=== PATIENT | female | born 1975 | race American Indian/Alaskan Native ===

== ENCOUNTER 2018-01-11 08:28 | Day surgery (SDC) | payer OTHER ==
--- NOTE | 2018-01-06 11:09 | Anesthesia Consultation ---
Anesthesia Consult and Med Hx Date of service: 01/06/18 - Airway Anesthetic Teeth Evaluation: Good, Crowns ROM Head & Neck: Adequate Mental/Hyoid Distance: Adequate Mallampati Class: Class II Intubation Access Assessment: Probably Good - Pulmonary Exam CTA: Yes - Cardiac Exam Cardiac Exam: RRR - Pre-Operative Health Status ASA Pre-Surgery Classification: ASA2 Proposed Anesthetic Plan: General - Cardiovascular System Hx Hypertension: No - Central Nervous System Hx Psychiatric Problems: No - Hematic Hx Anemia: Yes (uterine fibroid) - Other Systems Hx Alcohol Use: Yes (occas) Hx Cancer: No
[2018-01-06 11:10] LABS: Basophils # (Auto) 0.1 K/mm3 (0.0-0.1); Basophils % (Auto) 1.3 % (0.0-1.8); Eosinophils # (Auto) 0.2 K/mm3 (0.0-0.4); Eosinophils % (Auto) 3.9 % (0.0-4.3); Hematocrit 32.1 % (30.3-42.9); Hemoglobin 10.1 gm/dl (10.1-14.3); Lymphocytes # (Auto) 1.3 K/mm3 (1.2-5.4); Lymphocytes % (Auto) 29.4 % (13.4-35.0); Mean Corpuscular HGB Conc 32 % (30-34); Mean Corpuscular Volume 71 fl (79-97); Monocytes # (Auto) 0.4 K/mm3 (0.0-0.8); Monocytes % (Auto) 8.6 % (0.0-7.3); Platelet Count 456 K/mm3 (140-440); Red Cell Distribution Width 17.9 % (13.2-15.2)
[2018-01-06 11:11] LABS: Mean Corpuscular Hemoglobin 23 pg (28-32)
[2018-01-06 11:31] LABS: BUN/Creatinine Ratio 15; Blood Urea Nitrogen 9 mg/dL (7-17); Calcium 8.9 mg/dL (8.4-10.2); Hemolysis Index 0
--- NOTE | 2018-01-08 15:30 | History and Physical Report ---
History of Present Illness History of present illness: T Patient has been reassessed/reevaluated. H&P has been reviewed. No interval changes. his is a 42 years old female who presents with submucosal uterine fibroid discovered during hysteroscopy for essure placement. She complains of menorrhagia. Patient desires definitive treatment and Essure placement Patient Profile: 42 Years Old Female LMP: 12/19/2017 Height: 61.5 inches (156.21 cm) Weight: 191 pounds BMI: 35.50 Menstrual History: LMP (date): 12/19/2017 Current Method of Contraception: Condoms Past History : 4 Term Births: 2 Premature Births: 0 Living Children: 2 Para: 2 Mult. Births: 0 Prev : 0 Prev. attempt? 0 Aborta: 2 Elect. Ab: 1 Spont. 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 of genital herpes: no Hx of STD: None Other: +HPV Current Allergies (reviewed today): * PENICILLIN (Critical) Past Medical History: Hypertension Past Surgical History: D&C Family History Summary: Other family member - Has Family History of Renal Disease - Entered On: 09/29/2017 Other family member - Has No Family History of Breast Cancer - Entered On: 2017 Other family member - Has No Family History of Colon Cancer - Entered On: 2017 Other family member - Has No Family History of Ovarvian Cancer - Entered On: 09/29 Social History: [employer] Patient is Smoking History: Patient has never smoked. Risk Factors: Smoked Tobacco Use: Never smoker Smokeless Tobacco Use: Never Drug use: no HIV high-risk behavior: no Alcohol use: yes Exercise: no Seatbelt use: 100 % Review of Systems General Denies fever, chills, sweats, anorexia, fatigue, weakness, malaise, weight loss and sleep disorder. Complains of menorrhagia. Denies vaginal discharge, incontinence, dysuria, hematuria, urinary frequency, amenorrhea, abnormal vaginal bleeding, pelvic pain, genital sores, decreased libido, painful periods, painful sex, urinary urgency, hot flashes, vaginal dryness, vaginal itching and vaginal odor. CV Denies chest pains, palpitations, syncope, dyspnea on exertion, orthopnea, PND and peripheral edema. Resp Denies cough, dyspnea at rest, excessive sputum, hemoptysis, wheezing and pleurisy. GI Denies nausea, vomiting, diarrhea, constipation, change in bowel habits, abdominal pain, melena, hematochezia, jaundice, gas/bloating, indigestion/ heartburn, dysphagia and odynophagia. Breast Denies left breast lump, right breast lump, nipple discharge, bloody discharge from nipple, breast pain, abnormal mammogram and breast enlargement. Psych Denies depression, anxiety, irritability and mood swings. Past History Past Medical History: other (See HPI) Past Surgical History: Other (See HPI) Social history: other (See HPI) Family history: other (See HPI) Medications and Allergies Allergies Allergy/AdvReac Type Severity Reaction Status Date / Time Penicillins Allergy Vomiting Verified 01/05/18 16:08 Home Medications Medication Instructions Recorded Confirmed Last Taken Type No Known Home Medications [No 01/05/18 01/05/18 Unknown History Reported Home Medications] Review of Systems Constitutional: other (See HPI) Exam - Physical Exam Narrative exam: HEENT: normocephalic, no lesions or deformities Neck/Thyroid: supple, thyroid normal Skin no significant abnormal lesions or rashes Chest: respiratory effort normal, clear to auscultation Breasts: skin/areolae normal, no masses, no nipple discharge, no erythema/warmth /tenderness, and axillae normal. CV: regular, normal S1-S2, no murmur, no rub, no gallop Abdomen: normal bowel sounds, soft, nontender, no HSM Musculoskeletal: grossly normal ROM in joints, no joint tenderness or muscle weakness Neuro: no gross anomalities Extremities: no clubbing, cyanosis, or edema HEALTHCARE INTERPRETER Exams Vulva/Vagina: normal appearance, white discharge, lesions. No evidence of cystocele or rectocele. Cervix: No lesions; no cervical motion tenderness Uterus: normal size and position, midline, mobile Adnexae: no masses or tenderness Rectovaginal: exam defered - Constitutional Vitals: Temp Pulse Resp BP Pulse Ox 97.8 F 80 16 140/90 01/06/18 10:45 01/06/18 10:45 01/06/18 10:45 01/06/18 10:45 Results - Labs CBC & Chem 7: 01/06/18 10:50 01/06/18 10:50 Assessment and Plan - Patient Problems (1) Submucous leiomyoma of uterus Current Visit: No Status: Acute Plan to address problem: Diagnosis explained to patient . Questions answered. Patient desires definitive treatment Patient desires least invasive procedure Patient desires myosure myomectomy Discussed risk of surgery including infection, bleeding and risk of perforating her uterus. Questions answered. Patient understands and desires to proceed (2) Encounter for sterilization Current Visit: No Status: Acute Plan to address problem: Patient desires sterilization.Discuss the permanency of sterilization. High risk of regret and 0.5 to 1% risk of failure. Discussed the different risk of abdominal versus vaginal approaches. Information given Patient desires Essure. Discussed risk of surgery including infection, bleeding and risk of perforating her uterus.Discuss permanent nature of the procedure and the 1% failure rate. Also stressed the need for alternative contraceptive for 3 months. Patient understands that a HSG is required to insure tubal occlusion. Questions answered. Patient understands and desires to proceed Patient states if unable to do Essure procedure she desires laparoscopy. Patient understands risks of bleeding, infection possible damage to bowel, bladder or ureter. Questions answered and desires to proceed.
[~2018-01-11 08:28] MED LIST: NACL 0.9% 1000 ML 1,000 ML IV SCH
[2018-01-11] MEDS ORDERED: LACTATED RINGERS 1,000 ML IV SCH (09:00)
[2018-01-11] MEDS ORDERED: VERSED IV NR (09:00)
[2018-01-11] MEDS ORDERED: TORADOL IV PRN (09:00)
[2018-01-11] MEDS ORDERED: ZOFRAN IV PRN (09:00)
[2018-01-11] MEDS ORDERED: DEMEROL IV PRN (09:00)
[2018-01-11] MEDS ORDERED: DILAUDID IV PRN (09:00)
--- NOTE | 2018-01-11 09:01 | Anesthesia Day of Surgery ---
Anesthesia Day of Surgery - Day of Surgery Patient Examined: Yes Patient H&P Reviewed: Yes Patient is NPO: Yes
--- NOTE | 2018-01-11 09:02 | Anesthesia Consultation ---
Anesthesia Consult and Med Hx Date of service: 01/11/18 - Airway Anesthetic Teeth Evaluation: Good ROM Head & Neck: Adequate Mental/Hyoid Distance: Adequate Mallampati Class: Class II Intubation Access Assessment: Probably Good - Pulmonary Exam CTA: Yes - Cardiac Exam Cardiac Exam: RRR - Pre-Operative Health Status ASA Pre-Surgery Classification: ASA2 Proposed Anesthetic Plan: General (GA with LMA) - Cardiovascular System Hx Hypertension: No - Central Nervous System Hx Psychiatric Problems: No - Hematic Hx Anemia: Yes (uterine fibroid) - Other Systems Hx Alcohol Use: Yes (occas) Hx Cancer: No
[2018-01-11] MEDS ORDERED: NACL BACTERIOSTATIC INFILTRATI ONE (09:03)
[2018-01-11] MEDS ORDERED: DIPRIVAN 10 MG/ML IV ONE (11:32)
[2018-01-11] MEDS ORDERED: SUBLIMAZE ONE (11:32)
[2018-01-11] MEDS ORDERED: NACL 0.9% IR ONE (12:00)
[2018-01-11] MEDS ORDERED: DECADRON ONE (12:12)
[2018-01-11] MEDS ORDERED: XYLOCAINE MPF 2% ONE (12:12)
[2018-01-11] MEDS ORDERED: ZOFRAN ONE (12:12)
[2018-01-11] MEDS ORDERED: ePHEDrine 50 MG/5 ML-0.9% NACL IV ONE (12:52)
[2018-01-11] MEDS ORDERED: LASIX ONE ×2 (12:55→13:07)
[2018-01-11 14:28] LABS: BUN/Creatinine Ratio 13; Blood Urea Nitrogen 9 mg/dL (7-17); Calcium 8.2 mg/dL (8.4-10.2); Hemolysis Index 51
--- NOTE | 2018-01-11 14:34 | XRay Report ---
Single view chest: History: Hypoxia during surgery. Findings: Normal cardiomediastinal silhouette. Trachea is midline. No consolidation, pneumothorax or pleural effusion. Incidentally noted free air under the right diaphragm probably related to previous surgery. Impression: No acute cardiopulmonary findings.
--- NOTE | 2018-01-11 14:56 | Short Stay Summary ---
Short Stay Documentation Date of service: 01/11/18 - History H&P: dictated Past Medical History: other (See HPI) Past Surgical History: Other (See HPI) Social history: other (See HPI) - Allergies and Medications Current Medications: Allergies Penicillins Allergy (Verified 01/05/18 16:08) Vomiting Home Medications Medication Instructions Recorded Confirmed Last Taken Type Acetaminophen/Codeine [Tylenol #3] 1 tab PO Q4HR PRN #20 tablet 01/11/18 Unknown Rx Ibuprofen [Motrin 800 MG tab] 800 mg PO Q6H PRN #30 tablet 01/11/18 Unknown Rx Active Medications Hydromorphone HCl (Dilaudid) 0.5 mg IV Q10MIN PRN PRN Reason: Pain , Severe (7-10) Sodium Chloride (Nacl 0.9% 1000 Ml) 1,000 mls @ 125 mls/hr IV DIRECT SY Last Admin: 01/11/18 09:20 Dose: 125 mls/hr Lactated Ringer's (Lactated Ringers) 1,000 mls @ 100 mls/hr IV DIRECT SY Ketorolac Tromethamine (Toradol) 30 mg IV ONCE PRN PRN Reason: Pain, Moderate (4-6) Meperidine HCl (Demerol) 25 mg IV ONCE PRN PRN Reason: Shivering Midazolam HCl (Versed) 2 mg IV PREOP NR Stop: 01/11/18 23:59 Last Admin: 01/11/18 09:40 Dose: 2 mg Ondansetron HCl (Zofran) 4 mg IV ONCE PRN PRN Reason: Nausea And Vomiting - Brief post op/procedure progress note Date of procedure: 01/11/18 (see dictated operative note) Condition: stable - Hospital course Hospital course: Patient was admitted underwent the above him procedure complicated by probable venous air embolus. Patient hypertension IMPROVED quickly in the operating room. Approximately 80% of the submucosal myoma was removed before the surgery had to be stopped. Essure was not attempted nor was the patient and her condition to perform laparoscopy. Patient chest x-ray metabolic panel and EKG were normal in the recovery room. Discussed the benefits to the operating room with the patient and her . Patient will be discharged with follow-up in office in 1-2 weeks for postop check. - Disposition Condition at discharge: Good Disposition: DC-01 TO HOME OR SELFCARE - Discharge Diagnoses (1) Submucous leiomyoma of uterus Status: Acute (2) Encounter for sterilization Status: Acute Short Stay Discharge Plan Activity: advance as tolerated Diet: regular Follow up with: TIFFANIE TANG MD [Primary Care Provider] - 7 Days Prescriptions: Ibuprofen [Motrin 800 MG tab] 800 mg PO Q6H PRN #30 tablet PRN Reason: Pain Acetaminophen/Codeine [Tylenol #3] 1 tab PO Q4HR PRN #20 tablet PRN Reason: Pain
--- NOTE | 2018-01-11 15:00 | Operative Report ---
Operative Report Operative Report: Date of procedure: 01/11/2018 Pre-operative diagnosis: Submucosal myoma and desires permanent sterilization Post-operative diagnosis: Same Procedure name(s): Operative hysteroscopy with MyoSure myomectomy partially completed Surgeon: Garland Olmos MD Cut Off Saw Operator Metal: [] Anesthesia: Gen. EBL: Minimal Complications: Patient done with hypoxia tension during the procedure consistent with probable venous air embolus Findings: Approximately 11/2-2 cm submucosal myoma the right fallopian tube ostium was seen along with the left fallopian tube ostia Specimen(s): Uterine mass Procedure: Patient was brought into the operating room, where general anesthesia was induced without any difficulty. Patient was placed in dorsal lithotomy position. Prep and drape in the usual sterile manner. Timeout procedure was performed. The patient's bladder was emptied with a red rubber catheter. Speculum was placed in the vagina. Tenaculum was placed at 12:00 on the cervix. The cervical os was dilated to a 19 Lao diameter. The hysteroscope was placed and the findings noted above. The MyoSure device was primed. The device was placed through the cervical os. The mass was then removed using the MyoSure. The mass was completely removed with no evidence of puncture on the uterine wall. All instruments were then removed. The patient was awakened in the operating room and accompanied to recovery room in good condition.
[2018-01-11] MEDS ORDERED: TYLENOL #3 ONE (15:40)
[2018-01-11] MEDS ORDERED: TYLENOL #3 PO ONE (16:10)
[2018-01-11] MEDS ORDERED: TYLENOL #3 PO SCH (17:00)
[2018-01-11 20:50] VITALS: BP 123/83
== END 2018-01-11 17:56 | disposition home or self-care (01) ==
LOC: OR 08:28
PROVIDERS: ATTEND Obstetrics & Gynecology
DX: Z30.2 Encounter for sterilization (principal); D25.0 Submucous leiomyoma of uterus; Z88.0 Allergy status to penicillin
CPT/HCPCS: 36415; 58561; 58565; 71045; 80048; 84703; 85025; 88305; 93005; 93010; A4217; C1782; J1100; J1885; J1940; J2175; J2250; J2405; J2704; J3010; J7030

== ENCOUNTER 2018-04-01 08:35 | Day surgery (SDC) | payer OTHER ==
--- NOTE | 2018-04-01 05:57 | History and Physical Report ---
History of Present Illness Date of examination: 03/29/18 History of present illness: Patient has been reassessed/reevaluated. H&P has been reviewed. No interval changes. This is a 43 years old female who presents with submucosal uterine fibroid discovered during hysteroscopy for essure placement. She complains of menorrhagia. Patient desires definitive treatment and Essure placement Vital Signs: Patient Profile: 43Years Old Female LMP: 12/19/2017 Height: 61.5 inches (156.21 cm) Weight: 191 pounds BMI: 35.50 s Past History : 4 Term Births: 2 Premature Births: 0 Living Children: 2 Para: 2 Mult. Births: 0 Prev : 0 Prev. attempt? 0 Aborta: 2 Elect. Ab: 1 Spont. Ab: 1 Ectopics: 0 Abnormal PAP: negative Uterine Anomaly: negative Infection History HIV Risk Eval: no Personal hx. of genital herpes: no Hx of STD: None Other: +HPV Current Allergies (reviewed today): * PENICILLIN (Critical) Past Medical History: Hypertension Past Surgical History: Hysteroscopic myomectomy complicated by possible air embolus during surgery Family History Summary: Other family member - Has Family History of Renal Disease - Entered On: 09/29/2017 Other family member - Has No Family History of Breast Cancer - Entered On: 2017 Other family member - Has No Family History of Colon Cancer - Entered On: 2017 Other family member - Has No Family History of Ovarvian Cancer - Entered On: 09/29 Social History: [employer] Patient is Smoking History: Patient has never smoked. Risk Factors: Smoked Tobacco Use: Never smoker Smokeless Tobacco Use: Never Drug use: no HIV high-risk behavior: no Alcohol use: yes Exercise: no Seatbelt use: 100 % Review of Systems General Denies fever, chills, sweats, anorexia, fatigue, weakness, malaise, weight loss and sleep disorder. Complains of menorrhagia. Denies vaginal discharge, incontinence, dysuria, hematuria, urinary frequency, amenorrhea, abnormal vaginal bleeding, pelvic pain, genital sores, decreased libido, painful periods, painful sex, urinary urgency, hot flashes, vaginal dryness, vaginal itching and vaginal odor. CV Denies chest pains, palpitations, syncope, dyspnea on exertion, orthopnea, PND and peripheral edema. Resp Denies cough, dyspnea at rest, excessive sputum, hemoptysis, wheezing and pleurisy. GI Denies nausea, vomiting, diarrhea, constipation, change in bowel habits, abdominal pain, melena, hematochezia, jaundice, gas/bloating, indigestion/ heartburn, dysphagia and odynophagia. Breast Denies left breast lump, right breast lump, nipple discharge, bloody discharge from nipple, breast pain, abnormal mammogram and breast enlargement. Psych Denies depression, anxiety, irritability and mood swings. Past History Past Medical History: other (See HPI) Past Surgical History: Other (See HPI) Social history: other (See HPI) Family history: other (See HPI) Medications and Allergies Allergies Allergy/AdvReac Type Severity Reaction Status Date / Time Penicillins Allergy Vomiting Verified 01/05/18 16:08 Home Medications Medication Instructions Recorded Confirmed Last Taken Type Ergocalciferol [Vitamin D2] 50,000 units PO QWEEK 04/01/18 04/01/18 03/31/18 History Exam - Physical Exam Narrative exam: HEENT: normocephalic, no lesions or deformities Skin no significant abnormal lesions or rashes Chest: respiratory effort normal, clear to auscultation Breasts: skin/areolae normal, no masses, no nipple discharge, no erythema/warmth /tenderness, and axillae normal. CV: regular, normal S1-S2, no murmur, no rub, no gallop Abdomen: normal bowel sounds, soft, nontender, no HSM Musculoskeletal: grossly normal ROM in joints, no joint tenderness or muscle weakness Neuro: no gross anomalities Extremities: no clubbing, cyanosis, or edema FIELD OPERATIONS FARM MANAGER Exams Vulva/Vagina: normal appearance, white discharge, lesions. No evidence of cystocele or rectocele. Cervix: No lesions; no cervical motion tenderness Uterus: normal size and position, midline, mobile Adnexae: no masses or tenderness Rectovaginal: exam defered Results - Labs CBC & Chem 7: 04/01/18 09:40 04/01/18 09:40 Assessment and Plan - Patient Problems (1) Encounter for sterilization Current Visit: No Status: Acute Plan to address problem: Patient s/p failed Essure attempts desires laparaoscopic tubal ligation. Discuss the risks of the surgery including infection, bleeding possibly heavy enough to require a blood transfusion, possible damage to adjacent organs. Discuss permanent nature of the procedure and the 1% failure rate. Discuss of possibility of laparotomy needed (2) Submucous leiomyoma of uterus Current Visit: No Status: Acute Plan to address problem: S/p myosure interrupted by probable air embolus. Patient has been cleared by sales operations associate. Patient desires hysteroscopy to remove possible residual myoma and endometrial ablation. Discussed risk of surgery including infection, bleeding and risk of perforating her uterus. Questions answered. Patient understands and desires to proceed (3) Hypertension Current Visit: No Status: Acute Qualifiers: Hypertension type: essential hypertension Qualified Code(s): I10 - Essential (primary) hypertension Plan to address problem: Systems Engineering Manager clearance obtained (4) Menorrhagia Current Visit: Yes Status: Acute Qualifiers: Menorrahagia type: with regular cycle Qualified Code(s): N92.0 - Excessive and frequent menstruation with regular cycle Plan to address problem: Probably secondary to #2. Patient desires definitive treatment. In addition to myomectomy patient desire endometrial ablation with Novasure.
[~2018-04-01 08:35] MED LIST changes: +DIPRIVAN 10 MG/ML IV ONE; -NACL 0.9% 1000 ML 1,000 ML IV SCH
[2018-04-01 10:05] LABS: Basophils % (Auto) 0.9 % (0.0-1.8); Eosinophils # (Auto) 0.2 K/mm3 (0.0-0.4); Eosinophils % (Auto) 4.2 % (0.0-4.3); Hematocrit 25.6 % (30.3-42.9); Hemoglobin 7.9 gm/dl (10.1-14.3); Lymphocytes # (Auto) 1.5 K/mm3 (1.2-5.4); Lymphocytes % (Auto) 27.8 % (13.4-35.0); Mean Corpuscular HGB Conc 31 % (30-34); Mean Corpuscular Hemoglobin 20 pg (28-32); Mean Corpuscular Volume 66 fl (79-97); Monocytes # (Auto) 0.4 K/mm3 (0.0-0.8); Monocytes % (Auto) 6.6 % (0.0-7.3); Platelet Count 464 K/mm3 (140-440); Red Blood Count 3.87 M/mm3 (3.65-5.03); Red Cell Distribution Width 17.5 % (13.2-15.2)
[2018-04-01 10:21] LABS: BUN/Creatinine Ratio 13; Blood Urea Nitrogen 9 mg/dL (7-17); Calcium 8.8 mg/dL (8.4-10.2); Hemolysis Index 0
[2018-04-01] MEDS ORDERED: MARCAINE 0.5% INFILTRATI ONE ×2 (10:24→12:30)
--- NOTE | 2018-04-01 10:27 | Anesthesia Day of Surgery ---
Anesthesia Day of Surgery - Day of Surgery Patient Examined: Yes Patient H&P Reviewed: Yes Patient is NPO: Yes
--- NOTE | 2018-04-01 10:27 | Anesthesia Consultation ---
Anesthesia Consult and Med Hx Date of service: 04/01/18 - Airway Anesthetic Teeth Evaluation: Good ROM Head & Neck: Adequate Mental/Hyoid Distance: Adequate Mallampati Class: Class II Intubation Access Assessment: Probably Good - Pulmonary Exam CTA: Yes - Cardiac Exam Cardiac Exam: RRR - Pre-Operative Health Status ASA Pre-Surgery Classification: ASA2 Proposed Anesthetic Plan: General - Pulmonary Hx Smoking: No Hx Asthma: No COPD: No - Cardiovascular System Hx Hypertension: No Hx Heart Attack/AMI: No Hx Percutaneous Transluminal Coronary Angioplasty (PTCA): No - Central Nervous System Hx Seizures: No CVA: No Hx Psychiatric Problems: No - Gastrointestinal Hx Gastroesophageal Reflux Disease: No - Endocrine Hx Renal Disease: No Hx Insulin Dependent Diabetes: No Hx Thyroid Disease: No - Hematic Hx Anemia: Yes (Hb 7.9) - Other Systems Hx Alcohol Use: Yes (occas) Hx Obesity: Yes - Additional Comments Anesthesia Medical History Comments: Had procedure under Ga in 12/2017 with episode of intra op bradycardia and hypoxia. Has since had cardiac work up including negative stress test and normal TTE.
[2018-04-01] MEDS ORDERED: LACTATED RINGERS 1,000 ML IV SCH (11:00)
[2018-04-01] MEDS ORDERED: VERSED IV NR (11:00)
[2018-04-01] MEDS ORDERED: NEURONTIN PO NR (11:00)
[2018-04-01] MEDS ORDERED: ZEMURON IV ONE (11:44)
[2018-04-01] MEDS ORDERED: ZOFRAN ONE (11:44)
[2018-04-01] MEDS ORDERED: DECADRON ONE (11:44)
[2018-04-01] MEDS ORDERED: QUELICIN ONE (11:44)
[2018-04-01] MEDS ORDERED: XYLOCAINE MPF 2% ONE (11:44)
[2018-04-01] MEDS ORDERED: SUBLIMAZE ONE (12:00)
[2018-04-01] MEDS ORDERED: NACL 0.9% IR ONE (12:30)
--- NOTE | 2018-04-01 12:58 | Operative Report ---
Operative Report Operative Report: Pre-operative diagnosis: Menorrhalgia and Patient desires permanent sterilization, Post-operative diagnosis: Same Procedure name(s): Laparoscopic bilateral tubal ligation with Falope-Rings and endometrial ablation with NovaSure Surgeon: Garland Olmos MD Shipping Inspector: [] Anesthesia: General endotracheal EBL: Minimal Complications: None Findings: Patient with uterus approximately 14-16 weeks size with multiple fibroids largest approximately 4 cm did have a directly to fibroid anteriorly approximately 3 cm in diameter with normal fallopian tubes bilaterally. Hysteroscopy revealed an remnants of a previous some small myoma also another small and Deferred myoma was evidence of intramural myomas present inside the cavity. Unable see tubal ostium with the hysteroscope Specimen(s): None Patient was brought in the operating room. General anesthesia was induced without difficulty. She was placed in dorsal lithotomy position. Prepped and draped in usual sterile manner. Her urinary bladder with was emptied with a red rubber catheter. Speculum placed in her vagina and EyeScribess uterine manipulator was placed for uterine manipulation. Attention was then switched to the patient's abdomen. An infra-umbilical incision was made with a scalpel. This incision was spread with a hemostat. A 5 mm trocar was placed in this incision while lifting high the abdominal wall. Intra-abdominal presence was verified directly with the laparoscope. The patient was then insufflated to approximately 3 L of CO2 gas. The patient's findings as noted above. An accessory puncture was made suprapubically. The 8 mm trocar was placed through this incision under direct visualization with no evidence of internal organ damage. Each of the fallopian tube were identified by its fimbriated end. A portion approximately 1-2 cm from each cornua was grasped with the Falope ring applicator. Falope-Rings were placed without any difficulty bilaterally. At this time all instruments were removed. The patient was deinsufflated. The skin incisions were closed subcuticular with 4-0 Vicryl. Marcaine was given subcuticularly for postoperative pain relief. Attention then was switched to the patient's vagina. Patient was returned to the dorsal lithotomy position Speculum was placed in the vagina. The cervical length and uterine cavity was then assessed with a sound. Cervical length was 3.5 cm the total uterine cavity was 10 cm. The hysteroscope was then placed through the cervical os. With the findings as noted above. The NovaSure was then placed through the cervical os the uterine width was then measured at the 3.4 cm. After passing the testing for cavity integrity, and NovaSure ablation was then started. The power setting was at 112 and the procedure lasted 50 seconds. The NovaSure applicator was then removed. There was large amount of tissue on the NovaSure. Post procedure hysteroscopy showed cavity ablation. Our instruments are removed. The patient tolerated the procedure well and was awakened in the operating room. Accompanied to recovery in good condition.
--- NOTE | 2018-04-01 13:09 | Short Stay Summary ---
Short Stay Documentation Date of service: 04/01/18 - History H&P: dictated Past Medical History: other (See HPI) Past Surgical History: Other (See HPI) Social history: other (See HPI) - Allergies and Medications Current Medications: Allergies Penicillins Allergy (Verified 01/05/18 16:08) Vomiting Home Medications Medication Instructions Recorded Confirmed Last Taken Type Doxycycline [Vibramycin CAP] 100 mg PO Q12HR #14 capsule 04/01/18 Unknown Rx Ergocalciferol [Vitamin D2] 50,000 units PO QWEEK 04/01/18 04/01/18 03/31/18 History oxyCODONE /ACETAMINOPHEN [Percocet 1 - 2 tab PO Q4H PRN #30 tablet 04/01/18 Unknown Rx 5/325 mg] Active Medications Celecoxib (Celebrex) 200 mg PO PREOP NR Stop: 04/01/18 15:00 Last Admin: 04/01/18 10:32 Dose: 200 mg Gabapentin (Neurontin) 300 mg PO PREOP NR Stop: 04/01/18 15:00 Last Admin: 04/01/18 10:33 Dose: 300 mg Hydromorphone HCl (Dilaudid) 0.5 mg IV Q10MIN PRN PRN Reason: Pain , Severe (7-10) Stop: 04/01/18 20:00 Lactated Ringer's (Lactated Ringers) 1,000 mls @ 100 mls/hr IV DIRECT SY Last Admin: 04/01/18 10:50 Dose: 100 mls/hr Midazolam HCl (Versed) 2 mg IV PREOP NR Stop: 04/01/18 23:59 Last Admin: 04/01/18 10:50 Dose: 2 mg - Brief post op/procedure progress note Date of procedure: 04/01/18 (see dictated operative note) - Hospital course Hospital course: Patient was admitted underwent the above him procedure without any complications. Patient will be discharged with follow-up in office in 1-2 weeks for postop check. - Disposition Condition at discharge: Good Disposition: DC-01 TO HOME OR SELFCARE - Discharge Diagnoses (1) Encounter for sterilization Status: Acute (2) Submucous leiomyoma of uterus Status: Acute (3) Hypertension Status: Acute Qualifiers: Hypertension type: essential hypertension Qualified Code(s): I10 - Essential (primary) hypertension (4) Menorrhagia Status: Acute Qualifiers: Menorrahagia type: with regular cycle Qualified Code(s): N92.0 - Excessive and frequent menstruation with regular cycle Short Stay Discharge Plan Activity: advance as tolerated Diet: regular Wound: open to air Follow up with: TIFFANIE TANG MD [Primary Care Provider] - 7 Days Prescriptions: oxyCODONE /ACETAMINOPHEN [Percocet 5/325 mg] 1 - 2 tab PO Q4H PRN #30 tablet PRN Reason: Pain, Moderate Doxycycline [Vibramycin CAP] 100 mg PO Q12HR #14 capsule
[2018-04-01] MEDS: DILAUDID IV PRN ×2 (13:13→13:28)
[2018-04-01] MEDS ORDERED: PERCOCET 5/325 PO PRN (13:48)
[2018-04-01 16:26] VITALS: BP 139/87
--- NOTE | 2018-04-01 17:00 | Post Anesthesia Evaluation ---
- Post Anesthesia Evaluation Patient Participated: Yes Airway Patent: Yes Stable Respiratory Function: Yes Nausea/Vomiting: No Temp > 96.8F: Yes Pain Manageable: Yes Adequeate Hydration: Yes Anesthesia Complications: No
== END 2018-04-01 16:01 | disposition home or self-care (01) ==
LOC: OR 08:35
PROVIDERS: ATTEND Obstetrics & Gynecology
DX: D25.0 Submucous leiomyoma of uterus (principal); D64.9 Anemia, unspecified; I10 Essential (primary) hypertension; E66.9 Obesity, unspecified; Z68.35 Body mass index [BMI] 35.0-35.9, adult; Z79.899 Other long term (current) drug therapy; Z88.0 Allergy status to penicillin; Z72.89 Other problems related to lifestyle; Z98.890 Other specified postprocedural states
CPT/HCPCS: 36415; 58563; 58671; 80048; 81025; 85025; 86850; 86900; 86901; A4217; J0330; J1100; J1170; J2250; J2405; J2704; J3010; J7120